=== PATIENT | female | born 1985 | race Caucasian/White ===

== ENCOUNTER 2021-06-16 09:09 | Day surgery (SDC) | payer OTHER, MEDICAID ==
[2021-06-16 09:34] VITALS: BMI 39.9
== END 2021-06-16 19:29 | disposition home or self-care (01) ==
LOC: CSHLD/OP 09:09
PROVIDERS: ATTEND Student in an Organized Health Care Education/Training Program
DX: O30.103 Triplet pregnancy, unspecified number of placenta and unspecified number of amniotic sacs, third trimester (principal); O32.1XX1 Maternal care for breech presentation, fetus 1; O32.2XX2 Maternal care for transverse and oblique lie, fetus 2; O09.523 Supervision of elderly multigravida, third trimester; Z3A.31 31 weeks gestation of pregnancy
CPT/HCPCS: 76819; 99282

== ENCOUNTER 2021-06-30 11:37 | Day surgery (SDC) | payer OTHER, MEDICAID ==
[2021-06-30 12:49] VITALS: BMI 40.4
[2021-06-30] MEDS ORDERED: hydrALAZINE 20 MG/ML VIAL SLOW IVP PRN (13:06)
== END 2021-06-30 13:46 | disposition home or self-care (01) ==
LOC: CSHLD/OP 11:37
PROVIDERS: ATTEND Student in an Organized Health Care Education/Training Program
DX: O30.103 Triplet pregnancy, unspecified number of placenta and unspecified number of amniotic sacs, third trimester (principal); O09.523 Supervision of elderly multigravida, third trimester; Z3A.33 33 weeks gestation of pregnancy; Z79.82 Long term (current) use of aspirin
CPT/HCPCS: 59025; 99282

== ENCOUNTER 2021-07-01 12:20 | Outpatient (CLI) | payer OTHER ==
[2021-07-02 13:56] LABS: SARS-CoV-2 PCR by NAA Not Detected (NotDetected)
== END 2021-07-01 12:21 | disposition home or self-care (01) ==
LOC: CSHLAB 12:20
PROVIDERS: ATTEND Student in an Organized Health Care Education/Training Program
DX: Z20.822 Contact with and (suspected) exposure to COVID-19 (principal)
CPT/HCPCS: U0003; U0005

== ENCOUNTER 2021-07-05 05:50 | Inpatient (IN) | payer OTHER ==
[2021-07-05] MEDS ORDERED: hydrALAZINE 20 MG/ML VIAL SLOW IVP PRN ×2 (06:04→15:20)
[2021-07-05] MEDS ORDERED: Ondansetron PF 4 MG/2 ML Vial IVP PRN ×3 (06:04→15:20)
[2021-07-05] MEDS ORDERED: Bicitra 30 ML UDCUP PO PRN (06:04)
[2021-07-05] MEDS ORDERED: Promethazine HCl 25 MG/ML VIAL IM PRN ×3 (06:04→15:20)
[2021-07-05] MEDS ORDERED: ceFAZolin 2 GM/Dextrose 50 ML 2 GM in Premix Bag 1 BAG IVPB SCH (06:04)
[2021-07-05] MEDS ORDERED: Famotidine/PF 20 mg/2ml Vial SLOW IVP PRN (06:04)
[2021-07-05 06:37] VITALS: BMI 40.4
[2021-07-05] MEDS: Lactated Ringer's 1,000 ML IV SCH ×2 (06:40→07:56)
[2021-07-05 06:53] LABS: Hemoglobin 10.3 g/dL (12.0-15.5); Mean Corpuscular HGB CONC 32.7 g/dL (32.0-36.0); Mean Corpuscular Hemoglobin 27.9 pg (27.0-33.0); Mean Corpuscular Volume 85.4 fl (81.6-98.3); Mean Platelet Volume 11.6 fl (7.4-10.4); Platelet Count 180 10x3/uL (150-450); Red Blood Cell (RBC) Count 3.69 10x6/uL (3.90-5.03); White Blood Cell (WBC) Count 7.4 10x3/uL (3.5-10.5)
[2021-07-05 07:32] LABS: Syphilis Antibody Nonreactive (Nonreactive); Syphilis Antibody Index 0.05 S/CO (<1.00 Non-Reactive)
[2021-07-05 07:33] LABS: Hep B Surf Ag Non-Reactive S/CO (NonReactive)
[2021-07-05] MEDS ORDERED: Fentanyl 100 MCG/2 ML VIAL ONE (08:58)
[2021-07-05] MEDS ORDERED: Morphine PF 10 MG/10 ML VIAL ONE (08:58)
[2021-07-05] MEDS ORDERED: Oxytocin 10 UNITS/ML VIAL ONE ×2 (08:58→09:36)
[2021-07-05] MEDS ORDERED: ePHEDrine Sulfate 50 MG/10 ML VIAL ONE (08:59)
[2021-07-05 09:17] LABS: HBSAg Index 0.17 S/CO (0-0.99)
[2021-07-05] MEDS ORDERED: Carboprost 250 MCG/ML AMP ONE (09:35)
[2021-07-05] MEDS ORDERED: Misoprostol 200 MCG TAB ONE (09:35)
[2021-07-05] MEDS ORDERED: Methylergonovine 0.2 MG/ML VIAL ONE (09:36)
[2021-07-05] MEDS ORDERED: Ondansetron PF 4 MG/2 ML Vial ONE (10:00)
[2021-07-05] MEDS ORDERED: Ketorolac Tromethamine 30 MG/ML VIAL ONE (10:00)
[2021-07-05] MEDS ORDERED: Promethazine HCl 25 MG/ML VIAL ONE (10:00)
[2021-07-05] MEDS ORDERED: PHENYLEPHRINE-NS 100 MCG/ML 10 ML SYRINGE ONE (10:03)
[2021-07-05] MEDS ORDERED: Promethazine HCl 25 MG SUPP PR PRN (10:21)
[2021-07-05] MEDS ORDERED: Ketorolac Tromethamine 30 MG/ML VIAL IVP PRN (10:21)
[2021-07-05] MEDS ORDERED: Naloxone HCl 0.4 mg/ml Vial IVP PRN ×2 (10:21)
[2021-07-05] MEDS ORDERED: Naloxone HCl 0.4 mg/ml Vial IV PRN (10:21)
[2021-07-05] MEDS ORDERED: diphenhydrAMINE 50 MG/ML VIAL IVP PRN (10:21)
[2021-07-05] MEDS ORDERED: Ondansetron HCl/PF 4 MG/2 ML Vial IVP PRN (10:21)
[2021-07-05] MEDS ORDERED: HYDROmorphone 2 MG/ML VIAL SLOW IVP PRN (10:21)
[2021-07-05] MEDS ORDERED: Hydrocerin (Eucerin) Cream 120 gm Jar TOP PRN (10:21)
[2021-07-05] MEDS ORDERED: Meperidine HCl/PF 25 MG/ML VIAL SLOW IVP PRN (10:21)
[2021-07-05] MEDS ORDERED: L&D-Morphine 4 MG/ML VIAL SLOW IVP PRN (10:21)
[2021-07-05] MEDS ORDERED: Communication Order-Pharmacy FS SCH (10:30)
[2021-07-05] MEDS ORDERED: Acetaminophen 325 MG TAB PO PRN (15:20)
[2021-07-05] MEDS ORDERED: Boostrix 0.5 ML (Tdap) VIAL IM ONE (15:20)
[2021-07-05] MEDS ORDERED: diphenhydrAMINE 25 MG CAP PO PRN (15:20)
[2021-07-05] MEDS ORDERED: Lanolin Ointment 7 GM TUBE TOP PRN (15:20)
[2021-07-05] MEDS ORDERED: Bisacodyl 10 MG SUPP PR PRN (15:20)
[2021-07-05] MEDS ORDERED: Docusate Calcium (SURFAK) 240 MG CAP PO SCH (17:45)
[2021-07-05] MEDS ORDERED: Prenatal Vitamin 1 TAB PO SCH (17:45)
[2021-07-05] MEDS ORDERED: Ferrous Sulfate 325 MG TAB PO SCH (17:45)
[2021-07-05] MEDS: Ibuprofen 800 MG TAB PO SCH (18:26)
[2021-07-05] MEDS: Ferrous Sulfate 325 MG TAB PO SCH (22:08)
[2021-07-05] MEDS: Docusate Calcium (SURFAK) 240 MG CAP PO SCH (22:08)
[2021-07-05] MEDS ORDERED: HYDROcodone/Acetaminophen 5/325 mg Tablet PO PRN (22:30)
[2021-07-06] MEDS: Ibuprofen 800 MG TAB PO SCH ×3 (02:05→19:40)
[2021-07-06 05:52] LABS: Hemoglobin 8.7 g/dL (12.0-15.5); Mean Corpuscular HGB CONC 32.8 g/dL (32.0-36.0); Mean Corpuscular Hemoglobin 27.5 pg (27.0-33.0); Mean Corpuscular Volume 83.9 fl (81.6-98.3); Mean Platelet Volume 11.7 fl (7.4-10.4); Platelet Count 149 10x3/uL (150-450); RBC Distribution Width 15.9 % (11.5-14.5); Red Blood Cell (RBC) Count 3.16 10x6/uL (3.90-5.03); White Blood Cell (WBC) Count 8.8 10x3/uL (3.5-10.5)
[2021-07-06] MEDS: Ferrous Sulfate 325 MG TAB PO SCH ×2 (08:27→19:40)
[2021-07-06] MEDS: Docusate Calcium (SURFAK) 240 MG CAP PO SCH ×2 (08:27→19:40)
[2021-07-06] MEDS: Prenatal Vitamin 1 TAB PO SCH (08:27)
[2021-07-06] MEDS: HYDROcodone/Acetaminophen 5/325 mg Tablet PO PRN ×2 (15:13→19:41)
[2021-07-06] MEDS: Simethicone Chewable 80 MG TAB PO PRN (19:40)
[2021-07-07] MEDS: Ibuprofen 800 MG TAB PO SCH ×2 (05:20→16:11)
[2021-07-07] MEDS: HYDROcodone/Acetaminophen 5/325 mg Tablet PO PRN ×4 (05:20→20:26)
[2021-07-07] MEDS: Prenatal Vitamin 1 TAB PO SCH (09:07)
[2021-07-07] MEDS: Ferrous Sulfate 325 MG TAB PO SCH (09:07)
[2021-07-07] MEDS: Docusate Calcium (SURFAK) 240 MG CAP PO SCH (09:07)
[2021-07-08] MEDS: Ibuprofen 800 MG TAB PO SCH ×4 (00:22→21:15)
[2021-07-08] MEDS: HYDROcodone/Acetaminophen 5/325 mg Tablet PO PRN (00:22)
[2021-07-08] MEDS: Ferrous Sulfate 325 MG TAB PO SCH ×3 (00:22→21:15)
[2021-07-08] MEDS: Docusate Calcium (SURFAK) 240 MG CAP PO SCH ×3 (00:23→21:15)
[2021-07-08] MEDS: Simethicone Chewable 80 MG TAB PO PRN ×3 (08:30→21:16)
[2021-07-08] MEDS: Prenatal Vitamin 1 TAB PO SCH (08:31)
[2021-07-09] MEDS: Ibuprofen 800 MG TAB PO SCH (05:45)
[2021-07-09 08:42] VITALS: BP 128/74; TEMP 98.5
[2021-07-09] MEDS: Docusate Calcium (SURFAK) 240 MG CAP PO SCH (08:52)
[2021-07-09] MEDS: Prenatal Vitamin 1 TAB PO SCH (08:52)
[2021-07-09] MEDS: Simethicone Chewable 80 MG TAB PO PRN (08:52)
[2021-07-09] MEDS: Ferrous Sulfate 325 MG TAB PO SCH (08:52)
== END 2021-07-09 10:15 | disposition home or self-care (01) | DRG 784 ==
LOC: CSHLD 05:50 → CSHPP 13:45
PROVIDERS: ADMIT Student in an Organized Health Care Education/Training Program; ATTEND Student in an Organized Health Care Education/Training Program
PROC: 10D00Z1 Extraction of Products of Conception, Low, Open Approach (ICD-10-PCS; principal; 2021-07-05)
PROC: 0UB70ZZ Excision of Bilateral Fallopian Tubes, Open Approach (ICD-10-PCS; 2021-07-05)
DX: O36.5932 Maternal care for other known or suspected poor fetal growth, third trimester, fetus 2 (principal); O30.133 Triplet pregnancy, trichorionic/triamniotic, third trimester; O24.420 Gestational diabetes mellitus in childbirth, diet controlled; Z3A.34 34 weeks gestation of pregnancy; Z37.51 Triplets, all liveborn; Z90.49 Acquired absence of other specified parts of digestive tract; O99.344 Other mental disorders complicating childbirth; F31.9 Bipolar disorder, unspecified; O32.1XX1 Maternal care for breech presentation, fetus 1; O32.1XX3 Maternal care for breech presentation, fetus 3; Z30.2 Encounter for sterilization; Z80.3 Family history of malignant neoplasm of breast; O90.81 Anemia of the puerperium; D50.8 Other iron deficiency anemias
CPT/HCPCS: 36415; 36416; 51702; 85027; 86780; 86850; 86900; 86901; 87340; 88302; 88307; J0690; J1885; J2274; J2405; J2550; J3010; J7120; S0028